=== PATIENT | female | born 1975 | race Caucasian/White ===

== ENCOUNTER 2017-08-17 01:24 | Emergency (ER) | payer OTHER, MEDICAID ==
[~2017-08-17] VITALS: Ht 160 cm; Wt 99.8 kg
[~2017-08-17 01:24] MED LIST: ADDERALL 20 MG20 M1; ALPRAZOLAM; BACTRIM DS TAB1 EACH PO; BUTALB-APAP-CA1 EACH PO; CO Q-10200 MG; FIORICET-COD 31 EACH PO; FIORINAL CAPSUL1 CA1 PO; FLEXERIL PO; HYDROCODONE-AP1 EAC6 PO; IBUPROFEN 800800 M1 PO; LIORESAL 10 MG10 MG PO; LORTAB 5 MG/5001 TAB; MIDRIN CAPSULE1 CAP PO; NORCO 5-325 TA1 EACH PO; NORFLEX100 MG PO; PAXIL10 MG PO; PERCOCET 5-3251 EACH; PROMETHAZINE D480 ML PO; SAVELLA50 MG; SEASONIQUE; SENNA S TABLET1 EACH PO; TESSALON PERLE100 MG PO; VICODIN ES TAB1 EACH; VISTARIL 25 MG25 M1 PO; XANAX1 MG PO; ZPAK PO
[2017-08-17] MEDS ORDERED: AMITRIPTYLINE H25 M2 PO (01:40)
[2017-08-17] MEDS ORDERED: TOPAMAX 25 MG T25 M1 PO (01:41)
[2017-08-17 01:47] LABS: URINE BILIRUBIN NEGATIVE (Negative); URINE BLOOD NEGATIVE (Negative); URINE CLARITY CLEAR; URINE COLOR YELLOW; URINE GLUCOSE-RANDOM NEGATIVE (Negative); URINE KETONES TRACE (Negative); URINE LEUKOCYTES-REFLEX 1+ (Negative); URINE NITRITE-REFLEX NEGATIVE (Negative); URINE PROTEIN NEGATIVE (Negative); URINE SPECIFIC GRAVITY 1.025 (1.005-1.030); URINE UROBILINOGEN 0.2 E.U./dl (0.2-1.0)
[2017-08-17 01:54] LABS: BACTERIA-REFLEX >30 Many /HPF (None Seen); CASTS None Seen /LPF (None Seen); CRYSTALS None Seen /LPF (None Seen); MUCUS 4-6 Moderate strn/LPF (None Seen); SQUAMOUS 0-3 Few /LPF (0-3); URINE RBC 0-2 Rare /HPF (0-2)
[2017-08-17 02:03] LABS: ABSOLUTE BASOPHILS 0.1 thou/uL (0.0-0.2); ABSOLUTE EOSINOPHILS 0.2 thou/uL (0.0-0.7); ABSOLUTE LYMPHOCYTES 2.5 thou/uL (0.8-5.3); ABSOLUTE MONOCYTES 0.9 thou/uL (0.0-1.2); ABSOLUTE NEUTROPHILS 7.6 thou/uL (1.6-8.1); BASOPHILS 0.9 %; EOSINOPHILS 2.1 %; HEMATOCRIT 40.6 % (37.0-47.0); HEMOGLOBIN 13.8 gm/dL (12.0-15.0); LYMPHOCYTES 21.8 %; MCH 30.8 pg (26.0-34.0); MCHC 34.1 g/dL (28.0-37.0); MCV 90.4 fL (80.0-100.0); MONOCYTES 8.1 %; NUCLEATED RBCS 0 /100WBC; PLATELET COUNT* 224 thou/uL (150-400); POLYS 67.1 %; RBC 4.49 mil/uL (4.20-5.00); WBC 11.4 thou/uL (4.0-11.0)
[2017-08-17 02:08] LABS: CALCIUM 9.2 mg/dL (8.5-10.1); CREATININE 1.1 mg/dL (0.6-1.3); POTASSIUM 3.9 mmol/L (3.5-5.1)
[2017-08-17 02:12] LABS: ALBUMIN 3.5 g/dL (3.4-5.0); TOTAL BILIRUBIN 0.2 mg/dL (<0.1-1.0); TOTAL PROTEIN 7.4 g/dL (6.4-8.2)
[2017-08-17] MEDS ORDERED: CIPROFLOXACIN500 M1 PO (03:11)
[2017-08-17 03:19] VITALS: BP 144/88
== END 2017-08-17 03:20 | disposition home or self-care (01) ==
LOC: M.ERS 01:24
PROVIDERS: Family Medicine
DX: N39.0 Urinary tract infection, site not specified (principal); M79.7 Fibromyalgia; G43.909 Migraine, unspecified, not intractable, without status migrainosus; Z88.0 Allergy status to penicillin; Z88.1 Allergy status to other antibiotic agents; Z88.8 Allergy status to other drugs, medicaments and biological substances

== ENCOUNTER 2017-10-30 22:29 | Emergency (ER) | payer OTHER, MEDICAID ==
[~2017-10-30] VITALS: Ht 160 cm; Wt 100.2 kg
[~2017-10-30 22:29] MED LIST changes: +AMITRIPTYLINE H25 M2 PO; +CIPROFLOXACIN500 M1 PO; +TOPAMAX 25 MG T25 M1 PO
[2017-10-30] MEDS ORDERED: KLONOPIN0.5 MG (22:38)
[2017-10-31] MEDS ORDERED: DOXYCYCLINE 10100 MG PO (00:26)
[2017-10-31] MEDS ORDERED: HYDROCODON-ACE1 EAC8 PO (00:26)
[2017-10-31 01:03] VITALS: BP 116/80
== END 2017-10-31 01:04 | disposition home or self-care (01) ==
LOC: M.ERS 22:29
DX: L02.411 Cutaneous abscess of right axilla (principal); M79.7 Fibromyalgia; G43.909 Migraine, unspecified, not intractable, without status migrainosus; F17.210 Nicotine dependence, cigarettes, uncomplicated; Z91.040 Latex allergy status; Z88.0 Allergy status to penicillin; Z88.8 Allergy status to other drugs, medicaments and biological substances; Z90.49 Acquired absence of other specified parts of digestive tract

== ENCOUNTER 2017-11-01 23:46 | Emergency (ER) | payer OTHER, MEDICAID ==
[~2017-11-01] VITALS: Ht 160 cm; Wt 99.8 kg
[~2017-11-01 23:46] MED LIST changes: +DOXYCYCLINE 10100 MG PO; +HYDROCODON-ACE1 EAC8 PO; +KLONOPIN0.5 MG
[2017-11-02] MEDS ORDERED: NORCO 5-325 TA1 EAC1 PO (00:26)
[2017-11-02] MEDS ORDERED: CLEOCIN HCL150 MG PO (00:26)
[2017-11-02 00:45] VITALS: BP 110/68
== END 2017-11-02 00:46 | disposition home or self-care (01) ==
LOC: M.ERS 23:46
DX: L02.411 Cutaneous abscess of right axilla (principal); F41.9 Anxiety disorder, unspecified; G43.909 Migraine, unspecified, not intractable, without status migrainosus; M79.7 Fibromyalgia; F17.210 Nicotine dependence, cigarettes, uncomplicated; Z91.040 Latex allergy status; Z88.0 Allergy status to penicillin; Z88.8 Allergy status to other drugs, medicaments and biological substances; Z88.1 Allergy status to other antibiotic agents; Z90.49 Acquired absence of other specified parts of digestive tract

== ENCOUNTER 2019-03-28 01:36 | Emergency (ER) | payer OTHER ==
[~2019-03-28] VITALS: Ht 160 cm; Wt 99.8 kg
[~2019-03-28 01:36] MED LIST changes: +CLEOCIN HCL150 MG PO; +NORCO 5-325 TA1 EAC1 PO
[2019-03-28 02:22] LABS: ABSOLUTE BASOPHILS 0.1 thou/uL (0.0-0.2); ABSOLUTE EOSINOPHILS 0.2 thou/uL (0.0-0.7); ABSOLUTE LYMPHOCYTES 2.8 thou/uL (0.8-5.3); ABSOLUTE MONOCYTES 1.2 thou/uL (0.0-1.2); ABSOLUTE NEUTROPHILS 7.3 thou/uL (1.6-8.1); EOSINOPHILS 1.7 %; HEMATOCRIT 39.2 % (37.0-47.0); HEMOGLOBIN 13.6 gm/dL (12.0-15.0); LYMPHOCYTES 24.5 %; MCH 31.3 pg (26.0-34.0); MCHC 34.6 g/dL (28.0-37.0); MCV 90.6 fL (80.0-100.0); MONOCYTES 10.1 %; NUCLEATED RBCS 0 /100WBC; PLATELET COUNT* 212 thou/uL (150-400); POLYS 62.7 %; RBC 4.33 mil/uL (4.20-5.00); RDW-CV 13.8 % (10.5-14.5); WBC 11.6 thou/uL (4.0-11.0)
[2019-03-28 02:33] LABS: CALCIUM 8.6 mg/dL (8.5-10.1); CREATININE 0.9 mg/dL (0.6-1.3); POTASSIUM 3.7 mmol/L (3.5-5.1)
[2019-03-28 02:45] LABS: URINE BILIRUBIN NEGATIVE (Negative); URINE BLOOD TRACE (Negative); URINE CLARITY CLEAR; URINE COLOR YELLOW; URINE GLUCOSE-RANDOM NEGATIVE (Negative); URINE KETONES NEGATIVE (Negative); URINE LEUKOCYTES-REFLEX NEGATIVE (Negative); URINE NITRITE-REFLEX NEGATIVE (Negative); URINE PROTEIN NEGATIVE (Negative); URINE SPECIFIC GRAVITY >= 1.030 (1.005-1.030); URINE UROBILINOGEN 0.2 E.U./dl (0.2-1.0)
[2019-03-28] MEDS ORDERED: HYDROCODON-ACE1 EAC7 PO (03:26)
[2019-03-28] MEDS ORDERED: PHENERGAN 25 MG25 M1 PO (03:26)
[2019-03-28 03:39] VITALS: BP 140/65
== END 2019-03-28 03:40 | disposition home or self-care (01) ==
LOC: M.ERS 01:36
PROVIDERS: Personal Emergency Response Attendant
DX: R10.32 Left lower quadrant pain (principal); M79.7 Fibromyalgia; G43.909 Migraine, unspecified, not intractable, without status migrainosus; F41.9 Anxiety disorder, unspecified; F17.210 Nicotine dependence, cigarettes, uncomplicated; Z88.0 Allergy status to penicillin; Z91.040 Latex allergy status; Z88.1 Allergy status to other antibiotic agents; Z88.8 Allergy status to other drugs, medicaments and biological substances; Z98.890 Other specified postprocedural states; Z90.49 Acquired absence of other specified parts of digestive tract; Z98.51 Tubal ligation status; Z86.73 Personal history of transient ischemic attack (TIA), and cerebral infarction without residual deficits

== ENCOUNTER 2020-06-03 21:09 | Emergency (ER) | payer OTHER ==
[~2020-06-03] VITALS: Ht 160 cm; Wt 104.3 kg
[~2020-06-03 21:09] MED LIST changes: +HYDROCODON-ACE1 EAC7 PO; +PHENERGAN 25 MG25 M1 PO
[2020-06-03 21:34] LABS: URINE CLARITY SL HAZY; URINE COLOR ORANGE
[2020-06-03 21:37] LABS: URINE SPECIFIC GRAVITY 1.026 (1.005-1.030)
[2020-06-03 21:38] LABS: MUCUS 0-3 Light strn/LPF (None Seen); SQUAMOUS >10 Many /LPF (0-3)
[2020-06-03 21:39] LABS: BACTERIA-REFLEX >30 Many /HPF (None Seen); CASTS None Seen /LPF (None Seen); CRYSTALS None Seen /LPF (None Seen); URINE RBC 0-2 Rare /HPF (0-2); URINE WBC-REFLEX 0-5 Rare /HPF (0-5)
[2020-06-03] MEDS ORDERED: ZOFRAN ODT4 MG PO (21:49)
[2020-06-03] MEDS ORDERED: HYDROCODON-ACE1 EAC7 PO (21:49)
[2020-06-03] MEDS ORDERED: BACTRIM DS TAB1 EACH PO (21:49)
[2020-06-03 21:57] VITALS: BP 132/68
== END 2020-06-03 21:58 | disposition home or self-care (01) ==
LOC: M.ERS 21:09
PROVIDERS: Nurse Practitioner Psychiatric/Mental Health
DX: N39.0 Urinary tract infection, site not specified (principal); G43.909 Migraine, unspecified, not intractable, without status migrainosus; F17.210 Nicotine dependence, cigarettes, uncomplicated; Z88.0 Allergy status to penicillin; Z88.1 Allergy status to other antibiotic agents; Z88.8 Allergy status to other drugs, medicaments and biological substances; Z91.040 Latex allergy status